=== PATIENT | male | born 1980 | race Caucasian/White ===

== ENCOUNTER 2021-05-27 23:38 | Emergency (ER) | payer MEDICAID ==
[~2021-05-27] VITALS: Ht 180.3 cm; Wt 100.0 kg
[~2021-05-27 23:38] MED LIST: IBUP-1986 PO
[2021-05-27 23:46] VITALS: BP 134/87
[2021-05-28] MEDS ORDERED: ketorolac trometh. 30mg/ml inj. IM ONE (02:10)
[2021-05-28] MEDS ORDERED: IBUP-1986 PO (02:29)
[2021-05-28] MEDS ORDERED: HYDR-3972 PO (02:29)
== END 2021-05-28 02:46 | disposition home or self-care (01) ==
LOC: ER 23:38
DX: S39.012A Strain of muscle, fascia and tendon of lower back, initial encounter (principal); F17.210 Nicotine dependence, cigarettes, uncomplicated; W22.8XXA Striking against or struck by other objects, initial encounter; Y93.89 Activity, other specified; Y92.89 Other specified places as the place of occurrence of the external cause; Y99.8 Other external cause status
CPT/HCPCS: 72100; 96372; 99283; J1885

== ENCOUNTER 2021-10-18 22:08 | Inpatient (IN) | payer MEDICAID, OTHER ==
[~2021-10-18] VITALS: Ht 180.3 cm; Wt 95.4 kg
[2021-10-18 22:34] LABS: BASOPHILS # (AUTO) 0.1 X10'3 (0-0.2); EOSINOPHILS # (AUTO) 0.2 X10'3 (0-0.9); EOSINOPHILS % (AUTO) 1.3 % (0-6); HEMATOCRIT 47.2 % (42.0-52.0); HEMOGLOBIN 16.6 g/dl (14.0-17.9); LYMPHOCYTES # (AUTO) 3.3 X10'3 (1.1-4.8); LYMPHOCYTES % (AUTO) 26.7 % (21-51); MEAN CORPUSCULAR HEMOGLOBIN 31.1 PG (27.0-31.0); MEAN CORPUSCULAR HGB CONC 35.1 g/dL (33.0-36.5); MEAN CORPUSCULAR VOLUME 88.6 FL (78-98); MEAN PLATELET VOLUME 7.8 FL (7.4-10.4); MONOCYTES # (AUTO) 1.2 X10'3 (0-0.9); MONOCYTES % (AUTO) 9.7 % (2-12); NEUTROPHILS # (AUTO) 7.7 X10'3 (1.8-7.7); NEUTROPHILS % (AUTO) 61.3 % (42-75); PLATELET COUNT 355 X10'3 (140-440); RED BLOOD COUNT 5.33 X10'6 (4.70-6.10); RED CELL DISTRIBUTION WIDTH 12.6 % (11.5-14.5); WHITE BLOOD COUNT 12.5 X10'3 (4.5-11.0)
[2021-10-18 22:52] LABS: ALANINE AMINOTRANSFERASE 30 U/L (12-78); ALBUMIN 4.4 G/DL (3.4-5.0); ALBUMIN/GLOBULIN RATIO 1.2 (1.1-1.5); ALKALINE PHOSPHATASE 60 IU/L (46-116); ANION GAP 16 (8-16); ASPARTATE AMINO TRANSFERASE 16 U/L (10-37); BILIRUBIN,TOTAL 0.6 MG/DL (0.1-1.0); BLOOD UREA NITROGEN 22 MG/DL (7-18); BUN/CREATININE RATIO 18.5 (5.4-32.0); CALCIUM 9.6 MG/DL (8.5-10.1); CHLORIDE 102 MMOL/L (99-107); CREATININE 1.19 MG/DL (0.60-1.10); GLUCOSE 125 MG/DL (70-104); LIPASE 299 U/L (73-393); POTASSIUM 3.9 MMOL/L (3.5-5.1); SODIUM 142 MMOL/L (135-145); TOTAL CARBON DIOXIDE 24.2 MMOL/L (24-32); eGFR 67 ML/MIN
[2021-10-18] MEDS ORDERED: ondansetron/PF 4mg/2ml inj IV ONE (23:10)
[2021-10-18] MEDS ORDERED: normal saline 1000ML IV soln IVB ONE (23:55)
[2021-10-19] MEDS ORDERED: piperacillin/tazo 3.375gm/50ml 50 ML IV ONE
[2021-10-19 00:53] LABS: APTT 23 SECONDS (22-32)
[2021-10-19] MEDS: diatr meglu/diatrizoate 30ml oral sol.-(3 dose) bottle PO SCH ×3 (00:55→10:56)
[2021-10-19] MEDS ORDERED: ketorolac tromethamine 15mg/ml inj. IV ONE (00:55)
[2021-10-19] MEDS ORDERED: morphine 4 MG/ML inj SYRINge IV ONE (00:55)
[2021-10-19 01:13] LABS: CLARITY,URINE CLEAR (Clear); COLOR,URINE YELLOW (Yellow); GLUCOSE, URINE NEGATIVE (Neg); KETONES,URINE NEGATIVE (Neg); LEUKOCYTE ESTERASE ,URINE NEGATIVE (Neg); NITRITES, URINE NEGATIVE (Neg); OCCULT BLOOD,URINE NEGATIVE (Neg); PH,URINE 5.5 (4.8-8.0); PROTEIN,URINE NEGATIVE (Neg); UA COLLECTION TYPE CLN CATCH MIDSTREAM; UROBILINOGEN,URINE 0.2 E.U/dL (0.2-1.0)
[2021-10-19 01:21] LABS: MAGNESIUM 2.4 MG/DL (1.5-2.4)
[2021-10-19 01:23] LABS: ETHANOL < 0.010 GM/DL (0.0-0.010)
[2021-10-19] MEDS ORDERED: FLUO-167 PO (01:27)
[2021-10-19] MEDS ORDERED: LAMO25TA94 PO (01:27)
[2021-10-19] MEDS ORDERED: MIRT-88 PO (01:27)
--- NOTE | 2021-10-19 02:30 | NUR ---
ATTEMPTED TO INSERT NG TUBE DOWN LEFT NARE WITH DIFFICULTY, WILL HOLD INSERTION FOR NOW, MD AWARE.
[2021-10-19] MEDS ORDERED: HYDROcodone/acetaminophen 10/325mg tab PO PRN (02:50)
[2021-10-19] MEDS ORDERED: naloxone 0.4 mg/ml inj IV PRN (02:50)
[2021-10-19] MEDS ORDERED: morphine 2 MG/ML inj. syringe IV PRN ×2 (02:50)
[2021-10-19] MEDS ORDERED: diphenhydrAMINE 50 mg/ml inj IV PRN (02:50)
[2021-10-19] MEDS ORDERED: ondansetron/PF 4mg/2ml inj IV PRN (02:50)
[2021-10-19] MEDS ORDERED: ondansetron 4mg rapidly disintigrating tab PO PRN (02:50)
[2021-10-19] MEDS ORDERED: mag hydrox/Alum hydrox/simeth 30ml oral suspension PO PRN (02:50)
[2021-10-19] MEDS ORDERED: acetaminophen 325mg tablet PO PRN ×2 (02:50)
[2021-10-19] MEDS ORDERED: HYDROcodone/acetaminophen 5mg/325mg tablet PO PRN (02:50)
[2021-10-19] MEDS ORDERED: diphenhydrAMINE 25mg capsule PO PRN (02:50)
[2021-10-19] MEDS ORDERED: normal saline 1000ml 1,000 ML IV SCH (02:50)
[2021-10-19] MEDS ORDERED: magnesium hydroxide 30ml (MOM) UD suspension PO PRN (02:50)
[2021-10-19] MEDS ORDERED: bisacodyl 10mg suppository rectal RC PRN (02:50)
[2021-10-19] MEDS ORDERED: acetaminophen 650mg rectal suppository RC PRN (02:50)
--- NOTE | 2021-10-19 03:55 | NUR ---
Patient in room ED 8. I have received report from Keisha BRADLEY and had the opportunity to ask questions and awaiting patients arrival
--- NOTE | 2021-10-19 03:55 | NUR ---
report given to Tracey room 358 surg
[2021-10-19 04:03] LABS: HEMOGLOBIN A1C 5.2 % (4.5-6.2)
[2021-10-19 04:13] LABS: CREATINE KINASE 128 U/L (39-308); PHOSPHORUS 4.7 MG/DL (2.3-4.5)
[2021-10-19] MEDS ORDERED: magnesium citrate 296ml oral solution PO ONE (04:20)
[2021-10-19] MEDS ORDERED: lactulose 20gm/30ml cup PO ONE (04:20)
[2021-10-19] MEDS ORDERED: mineral oil 133ml enema RC PRN (04:20)
[2021-10-19] MEDS ORDERED: normal saline 1000ml 1,000 ML IVB ONE (04:20)
[2021-10-19 05:00] VITALS: BP 116/82
--- NOTE | 2021-10-19 05:13 | NUR ---
patient arrived on floor with guard in stable condition. Seen by DR Hartmann, laxatives ordered see EMAR. patient has intermittent lower right abdominal pain. will continue to monitor.
--- NOTE | 2021-10-19 06:12 | NUR ---
patient has had two loose BM. Report given to Rocio BRADLEY
[2021-10-19] MEDS ORDERED: polyethylene glycol 3350 17gm powd pack PO SCH (08:00)
[2021-10-19] MEDS ORDERED: lamoTRIgine 25mg tablet PO SCH (08:00)
[2021-10-19] MEDS ORDERED: docusate sod 100mg capsule PO SCH (08:00)
[2021-10-19] MEDS ORDERED: pantoprazole 40MG/NS 100ML BAG 100 ML IV SCH (08:00)
[2021-10-19] MEDS ORDERED: FLUoxetine 20mg capsule PO SCH (08:00)
[2021-10-19] MEDS ORDERED: heparin, porcine 5000 units/ml vial SQ SCH (08:00)
[2021-10-19] MEDS ORDERED: iohexol 300mg/ml 100ml inj. ONE (10:28)
[2021-10-19] MEDS ORDERED: diatr meglu/diatrizoate 30ml oral sol.-(3 dose) bottle ONE (10:29)
[2021-10-19 10:43] LABS: BASOPHILS # (AUTO) 0.1 X10'3 (0-0.2); BASOPHILS % (AUTO) 0.5 % (0-1); EOSINOPHILS # (AUTO) 0.2 X10'3 (0-0.9); EOSINOPHILS % (AUTO) 1.8 % (0-6); HEMATOCRIT 44.9 % (42.0-52.0); HEMOGLOBIN 15.8 g/dl (14.0-17.9); LYMPHOCYTES # (AUTO) 1.4 X10'3 (1.1-4.8); MEAN CORPUSCULAR HEMOGLOBIN 31.7 PG (27.0-31.0); MEAN CORPUSCULAR HGB CONC 35.2 g/dL (33.0-36.5); MEAN PLATELET VOLUME 8.3 FL (7.4-10.4); MONOCYTES # (AUTO) 0.9 X10'3 (0-0.9); MONOCYTES % (AUTO) 8.9 % (2-12); NEUTROPHILS % (AUTO) 75.8 % (42-75); PLATELET COUNT 280 X10'3 (140-440); RED BLOOD COUNT 4.99 X10'6 (4.70-6.10); WHITE BLOOD COUNT 10.5 X10'3 (4.5-11.0)
[2021-10-19 10:45] LABS: ALANINE AMINOTRANSFERASE 26 U/L (12-78); ALBUMIN 3.9 G/DL (3.4-5.0); ALBUMIN/GLOBULIN RATIO 1.2 (1.1-1.5); ALKALINE PHOSPHATASE 57 IU/L (46-116); ASPARTATE AMINO TRANSFERASE 21 U/L (10-37); BILIRUBIN,TOTAL 0.9 MG/DL (0.1-1.0); BLOOD UREA NITROGEN 20 MG/DL (7-18); BUN/CREATININE RATIO 20.2 (5.4-32.0); CALCIUM 8.7 MG/DL (8.5-10.1); CHLORIDE 107 MMOL/L (99-107); CREATININE 0.99 MG/DL (0.60-1.10); GLUCOSE 103 MG/DL (70-104); POTASSIUM 4.1 MMOL/L (3.5-5.1); SODIUM 142 MMOL/L (135-145); TOTAL PROTEIN 7.1 G/DL (6.4-8.2); eGFR 83 ML/MIN
[2021-10-19 10:50] LABS: ANION GAP 12 (8-16); TOTAL CARBON DIOXIDE 22.6 MMOL/L (24-32)
--- NOTE | 2021-10-19 11:11 | NUR ---
pT. DOWN FOR CT SCAN
--- NOTE | 2021-10-19 11:50 | NUR ---
DISCHARGE NOTE: HOSPITALIST ON FLOOR ROUNDED ON PT. PT. DENIES ABD PAIN AT THIS TIME. DISCHARGE ORDERED. REVIEWED DISCHARGE PAPERWORK WITH PT WITH GUARD AT BEDSIDE. DISCUSSED DOCUSATE, DIET, EXERCISE, AND F/U CARE AT [facility]. PT. HAD THE OPPORTUNITY TO ASK QUESTIONS WELL THE GUARD. PIV DC'D, CANNULA INTACT, NO S/SX BLEEDING NOTED, PRESSURE BANDAGE APPLIED. PT. ESCORTED BY GUARD TO LOWER LEVEL TO DC BACK TO [facility].
[2021-10-19 12:16] VITALS: BP 110/65
[2021-10-19] MEDS ORDERED: DOCU-148 PO (13:13)
[2021-10-19] MEDS ORDERED: temazepam 15mg capsule PO PRN (21:00)
[2021-10-19] MEDS ORDERED: mirtazapine 15mg tablet PO SCH (21:00)
== END 2021-10-19 13:35 | DRG 392 ==
LOC: ER 22:08 → ED HOLD 10-19 02:54 → EEVIPCON 10-19 02:54 → SUR 3N 10-19 04:07
PROVIDERS: ADMIT Family Medicine; ATTEND Family Medicine
DX: K59.09 Other constipation (principal); R10.9 Unspecified abdominal pain; E03.9 Hypothyroidism, unspecified; J44.9 Chronic obstructive pulmonary disease, unspecified; I10 Essential (primary) hypertension; R11.2 Nausea with vomiting, unspecified; E86.0 Dehydration; Z79.899 Other long term (current) drug therapy
CPT/HCPCS: 36415; 71045; 74176; 74177; 80053; 80320; 81003; 82550; 83036; 83605; 83690; 83735; 83880; 84100; 84439; 84443; 84480; 84484; 85025; 85610; 85730; 86885; 86900; 86901; 87040; 87081; 93005; 99285; C9113; G0378; J1644; J1885; J2270; J2405; J2543; J7030; Q9963; Q9967

== ENCOUNTER 2024-08-03 16:59 | Emergency (ER) | payer MEDICAID, OTHER ==
[~2024-08-03] VITALS: Ht 182.9 cm; Wt 98.6 kg
[~2024-08-03 16:59] MED LIST changes: +DOCU-148 PO; +FLUO-167 PO; -IBUP-1986 PO; +LAMO25TA94 PO; +MIRT-88 PO
[2024-08-03 17:12] VITALS: BP 128/88; PULSE 88; RESP 16; O2SAT 98
[2024-08-03] MEDS ORDERED: AMOX-117 PO (18:04)
[2024-08-03 18:28] VITALS: TEMP 98.3
== END 2024-08-03 18:31 | disposition home or self-care (01) ==
LOC: ER 17:00
DX: S61.412A Laceration without foreign body of left hand, initial encounter (principal); S61.411A Laceration without foreign body of right hand, initial encounter; Z79.2 Long term (current) use of antibiotics; Z79.899 Other long term (current) drug therapy; W54.0XXA Bitten by dog, initial encounter; Y93.89 Activity, other specified; Y92.89 Other specified places as the place of occurrence of the external cause; Y99.8 Other external cause status
CPT/HCPCS: 99283

== ENCOUNTER 2024-10-05 18:44 | Emergency (ER) | payer MEDICAID, OTHER ==
[~2024-10-05] VITALS: Ht 182.9 cm; Wt 101.2 kg
[2024-10-05 18:45] VITALS: BP 121/82; PULSE 89; RESP 18; O2SAT 98
[2024-10-05 19:41] VITALS: TEMP 97.9
[2024-10-05] MEDS: polymyxin B sulf/tmp ophth drops 10ml LEFTEYE ONE (19:51)
== END 2024-10-05 19:53 | disposition home or self-care (01) ==
LOC: ER 18:45
DX: S05.02XA Injury of conjunctiva and corneal abrasion without foreign body, left eye, initial encounter (principal); Z79.899 Other long term (current) drug therapy; X58.XXXA Exposure to other specified factors, initial encounter; Y93.89 Activity, other specified; Y92.89 Other specified places as the place of occurrence of the external cause; Y99.8 Other external cause status
CPT/HCPCS: 99283

== ENCOUNTER 2024-11-06 20:22 | Emergency (ER) | payer MEDICAID ==
[~2024-11-06] VITALS: Ht 182.9 cm; Wt 85.2 kg
--- NOTE | 2024-11-06 22:41 | Physician Documentation ---
History of Present Illness ~ Chief Complaint: Eye Pain Stated Complaint: INFECTION IN EYE Time Seen by MD: 21:57 OK to notify your PCP?: Yes Source: patient Mode of Arrival: POV Exam Limitations: no limitations HPI This is a 44-year-old male who comes in complaining of left eye redness and pain. He states that is yesterday his dog ran into him causing blunt trauma to the left side of the face and periorbital area. He says the tooth hit him in the eye. He was complaining mostly of pain with movement of the eye. He states he was slightly blurry vision but no significant decrease in vision. He does have some clear watery discharge from the eye. No purulent discharge. States the left eye is red. He denies headache. Medication Reconciliation Allergies: Coded Allergies: No Known Allergies (Unverified , 10/05/24) Scheduled Docusate Sodium (Colace), 1 CAP PO Q12H Fluoxetine HCl (Fluoxetine HCl), 1 CAP PO DAILY, (Reported) Lamotrigine (LaMICtal tablet), 1 TAB PO Q12H, (Reported) Mirtazapine (Mirtazapine), 1 TAB PO HS, (Reported) Past Medical History Past Medical History: No Pertinent History Past Surgical History: noncontributory Alcohol Use: None Drug Use: none Lives In: Home Physical Exam Vital Signs: Temperature: 98.2, Source: Temporal, Heart Rate: 77, Respiratory Rate: 18, BP: 141/85, Pulse Oximetry: 96, Weight: 85.200 Oxygen Flow Rate: 0 Pulse Oximetry Reflects: adequate oxygenation General Appearance: alert, WD/WN, no apparent distress Eye Lid: normal inspection Conjunctiva: other (The patient has erythema diffusely of the conjunctiva. To the lower part of the conjunctiva he has a subconjunctival hemorrhage. No obvious abrasion.) Cornea: normal inspection, other (No hyphema. No fluorescein uptake. Tonometry showed pressure of the 6 mmHg) Pupils/EOM/Fundus: PERRLA, EOM intact (Extraocular movements are intact with the patient was complains of pain with the right upper lateral gaze. He denies diplopia.) Face There is tenderness to palpation of the medial aspect of the orbital ridge. No infraorbital or periorbital contusion. Progress Results/Orders Results/Orders Orders - LION QUILES Ct Orbits (11/06/24 22:00) Completed Orders - LION QUILES Ct Orbits (11/06/24 22:00) Amox Tr/Potassium Clavulanate (Augmentin (11/06/24 22:40) Erythromycin Ophth Ointment (Ilotycin Op (11/06/24 22:40) Medications Received in ER Medications (Trade) Dose Ordered Sig/Mason Route PRN Reason Start Time Stop Time Status Last Admin Dose Admin (Augmentin 875-125mg tablet) 1 tab ONCE ONCE PO 11/06/24 22:40 11/06/24 22:41 DC 11/06/24 22:46 1 TAB (Ilotycin ophth ointment) 0.25 inch ONCE ONCE LEFTEYE 11/06/24 22:40 11/06/24 22:41 DC 11/06/24 22:46 0.25 INCH Vital Signs 11/06/24 20:31 Temp 98.2 Pulse 77 Resp 18 B/P (MAP) 141/85 Pulse Ox 96 O2 Flow Rate 0 Medical Decision Making Findings The patient had blunt trauma to the left eye and possible injury from the dog's tooth to the eye. There was no signs of a corneal abrasion or hyphema. Pupils are responsive. Extraocular movements are intact but there was some pain so I did a CT scan of the orbits however he was a prolonged wait time for the CT this evening the patient does not want to wait as he says he has a work in the morning. I did review myself and did not see anything however told the patient we will contact him if there is any concerning findings on the CT scan. In the meantime I gave him one Augmentin 875 mg p.o. here as it was late in the evening in all the pharmacies are closed. I also instilled some erythromycin ointment to his eye. I am going to discharge him home with a prescription for more Augmentin 875 twice a day for the next 10 days and Polytrim ophthalmic solution for the left eye. Told the patient to follow up with the primary care physician for referral to Ophthalmology. You can return to the ER for any worsening or concerning symptoms. Additional Comment Blunt trauma to the eye. Subconjunctival hemorrhage. Orbital fracture. Corneal abrasion. Departure Disposition: HOME / SELF CARE / HOMELESS Impression: Primary Impression: Blunt trauma, left eye Additional Impressions: Conjunctivitis Subconjunctival hemorrhage Condition: Stable Discharge Instructions: Bacterial Conjunctivitis, Adult, Subconjunctival Hemorrhage Additional Instructions: Take the oral antibiotics in his still the drops as prescribed. Follow up with the primary care physician and discuss a referral to Ophthalmology which we do not have on staff here at this hospital. Return or go to [facility] who does have Ophthalmology on staff if you have any worsening or concerning symptoms. Referrals: NO PRIMARY CARE PROVIDER (PCP) Prescriptions Amox Tr/Potassium Clavulanate (Augmentin 875-125 Tablet) 1 Each Tablet 1 TAB PO Q12H for 10 Days, #20 TAB Prov: LION QUILES 11/06/24 Polymyxin B Sulfate/Tmp Opth* (Polytrim Ophthalmic Drops*) 10 Ml Bottle 1 DRP RIGHTEYE Q4H for 7 Days, #10 EACH Prov: LION QUILES 11/06/24 Signature Scribe Signature: No scribe Attestation: The note accurately reflects work and decisions made by me.Lion MISHRA 11/06/24 23:35 LION QUILES Nov 06, 2024 22:41
[2024-11-06] MEDS: amox tr/potassium clavulanate 875/125mg TAB PO ONE (22:46)
[2024-11-06] MEDS: erythromycin ophthalmic ointment 1gm tube LEFTEYE ONE (22:46)
[2024-11-06] MEDS ORDERED: AMOX-117 PO (23:34)
[2024-11-06] MEDS ORDERED: POLOS RIGHTEYE (23:34)
[2024-11-06 23:39] VITALS: BP 138/82; PULSE 72; RESP 18; TEMP 98.6; O2SAT 99
--- NOTE | 2024-11-07 00:14 | RADIOLOGY REPORT ---
Clinical History Left eye trauma Comparison None Technique: CT volume data acquisition of the orbits presented in axial, coronal and sagittal planes All CT scans at this medical facility are performed using dose modulation techniques as appropriate t o a performed exam including the following: Automated exposure control was utilized; adjustment of th e mA and/or kV according to patient size; and use of iterative reconstruction technique. All CT studies are reported to the Dose Index Registry of the [employer]. Without Contrast Radiation Dose: CTDI (mGy): 49.09; DLP (mGy-cm): 532.28 JEISON WRIGHT, [id number] FINDINGS: Orbits and orbital contents are intact and unremarkable. Nasal bones, nasal septum and nasal spine are intact. Imaged portions of paranasal sinuses are intact with minimal chronic disease noted. Zygomatic arches, pterygoid plates and hard palate are intact. Imaged portions of mandible unremarkable, temporal mandibular joints unremarkable. Nasopharynx is unremarkable on this study. IMPRESSION: 1. Orbits and orbital contents are intact and unremarkable on this study. 2. Minimal chronic sinus disease noted. This report was electronically signed by Jason Sanz MD on 11/07/2024 12:10:46 AM.
== END 2024-11-06 23:42 | disposition home or self-care (01) ==
LOC: ER 20:23
DX: S05.92XA Unspecified injury of left eye and orbit, initial encounter (principal); H11.32 Conjunctival hemorrhage, left eye; H10.9 Unspecified conjunctivitis; Z79.899 Other long term (current) drug therapy; W54.1XXA Struck by dog, initial encounter; Y93.89 Activity, other specified; Y92.89 Other specified places as the place of occurrence of the external cause; Y99.8 Other external cause status
CPT/HCPCS: 70480; 99284